=== PATIENT | male | born 1980 | race Caucasian/White ===

== ENCOUNTER 2018-03-15 06:50 | Emergency (ER) | payer OTHER ==
--- NOTE | 2018-03-15 06:52 | EDPHY ---
H & P Time Seen by Provider: 03/15/18 06:52 HPI/ROS: Chief Complaint: Chest pain HPI: 37-year-old male with no significant medical history woke with chest pain at 5:30 a.m. This morning. Pain is about a 6/10. Is central chest pain with tightness. Is associated with some shortness of breath. Does not have a history of similar episodes in the past. No recent travel. No leg pain or swelling. He does not smoke. Does drink occasional alcohol. Does smoke occasional marijuana. No first-degree relatives with a history of coronary artery disease, grandfather did have a heart attack in his 50s. There are no aggravating or alleviating factors. He has not taken any medicines. ROS: 10 systems were reviewed and were negative except those elements noted in the HPI. PMH: Denies Social History: No smoking, occasional alcohol, occasional marijuana Family History: No first-degree relatives with a history of coronary artery disease Physical Exam: Gen: Awake, Alert, mildly diaphoretic HEENT: Nose: no rhinorrhea Eyes: PERRLA, EOMI Mouth: Moist mucosa Neck: Supple, no JVD Chest: nontender, lungs clear to auscultation Heart: S1, S2 normal, no murmur Abd: Soft, non-tender, no guarding Back: no CVA tenderness, no midline tenderness Ext: no edema, non-tender Skin: no rash Neuro: CN II-XII intact, Sensation grossly intact, Strength 5/5 in bilateral upper and lower extremities Medical Decision Making - Diagnostics EKG Interpretation: ECG time 6:54 a.m. Sinus bradycardia with a rate of 49. There are ST elevations 2-3 mm in leads to 3 and AVF with reciprocal changes in V2 through V4 consistent with an acute STEMI. ED Course/Re-evaluation: 37-year-old male with no significant risk factors for coronary artery disease presenting with 6 out of chest pain which woke him from sleep at 5:30 a.m. This morning. ECG is consistent with a STEMI. Nine 1 has been called. I have discussed with Dr. Quijano, emergency physician at [facility]. They will activate a cardiac alert. I have faxed her a copy of the ECG. 0705 EMS has arrived. Patient has received 325 mg of aspirin. IVs have been placed. Patient transferred to [facility] emergently for acute intervention. Critical Care Time: I spent a total of 15 minutes of critical care time in obtaining history, performing a physical exam, bedside monitoring of interventions, collecting and interpreting tests and discussion with consultants but not including time spent performing procedures. Departure - Departure Disposition: Acute Care Hospital Not [facility] Clinical Impression: STEMI (ST elevation myocardial infarction) Condition: Serious
[2018-03-15] MEDS ORDERED: NS 1,000 ML IV ONE (06:55)
[2018-03-15] MEDS ORDERED: ASPIRIN 81 MG CHEWABLE TAB PO ONE (06:55)
[2018-03-15 07:33] VITALS: BP 138/94
--- NOTE | 2018-03-15 12:33 | CPEKG ---
Test Reason : OPEN Blood Pressure : / mmHG Vent. Rate : 049 BPM Atrial Rate : 049 BPM P-R Int : 144 ms QRS Dur : 088 ms QT Int : 416 ms P-R-T Axes : 078 074 059 degrees QTc Int : 376 ms Sinus bradycardia Inferior infarct, acute (LCx) Lateral leads are also involved Confirmed by Per Santa ([id number]) on 03/15/2018 12:32:18 PM Referred By: Confirmed By:Per Santa
== END 2018-03-15 07:07 | disposition short-term general hospital (02) ==
LOC: CED 06:50
DX: I21.3 ST elevation (STEMI) myocardial infarction of unspecified site (principal); E86.9 Volume depletion, unspecified
CPT/HCPCS: 84484-PO